=== PATIENT | female | born 1990 | race Asian ===

== ENCOUNTER 2019-10-13 09:31 | Outpatient (CLI) | payer OTHER ==
--- NOTE | 2019-10-13 17:18 | MRI Report ---
Reason: PAIN DUE TO IMPLANTS Procedure Date: 10/13/2019 Accession Number: [id number] / [id number] Procedure: MRI - Breast W/O Con Bilat CPT Code: 57952 Final Report FULL RESULT: EXAM: BILATERAL BREAST MRI WITHOUT CONTRAST. EXAM DATE: 10/13/2019 11:07 AM CLINICAL HISTORY: Left chest wall pain. TECHNIQUE: Dedicated breast coil: Axial -dual inversion recovery and inversion recovery fat suppression Axial -inversion recovery and NE/3D silicone suppression Sagittal - inversion recovery fat suppression FINDINGS: The examination is degraded by motion artifact. Right breast: Subpectoral silicone implant in place. No evidence for intra or extracapsular rupture. Left breast: Subpectoral silicone implant in place. No evidence for intra or extracapsular rupture. There are no pathologically enlarged axillary or intramammary lymph nodes. IMPRESSION: Intact silicone implants. No evidence for rupture. No explanation for left chest wall pain.
== END 2019-10-13 09:32 | disposition home or self-care (01) ==
LOC: DI 09:31
DX: N64.4 Mastodynia (principal); Z98.82 Breast implant status
CPT/HCPCS: 77047